=== PATIENT | male | born 1955 | race Caucasian/White ===

== ENCOUNTER 2016-03-08 12:46 | Outpatient (CLI) | payer MEDICARE, OTHER ==
[2016-03-08 14:23] LABS: #Basophils 0.1 thou/uL (0.0-0.2); #Eosinphils 0.2 thou/uL (0.0-0.7); #Lymphocytes 2.6 thou/uL (1.20-3.40); #Monocytes 0.6 thou/uL (0.11-0.59); #Neutrophils 3.5 thou/uL (1.40-6.50); %Basophils 0.8 % (0.0-1.0); %Eosinophils 2.6 % (0.0-10.0); %Lymphocytes 37.9 % (21.0-51.0); %Monocytes 8.1 % (0.0-10.0); Hematocrit 40.2 % (42.0-52.0); Mean Platelet Volume 9.7 fL (7.4-10.4); Red Blood Cell (RBC) Count 4.33 mill/uL (4.70-6.10); White Blood Cell (WBC) Count 6.9 thou/uL (4.8-10.8)
[2016-03-08 14:42] LABS: ALT (SGPT) 23 U/L (0-55); AST (SGOT) 22 U/L (5-34); Alkaline Phosphatase 95 U/L (40-150); Anion Gap 16 mmol/L (10-20); BUN (Urea Nitrogen) 21 mg/dL (8.4-25.7); Bilirubin, Direct 0.2 mg/dL (0.1-0.3); Bilirubin, Total 0.5 mg/dL (0.2-1.2); Calc. Creatinine Clearance 0 mL/min (70-130); Calcium 9.5 mg/dL (7.8-10.44); Carbon Dioxide 23 mmol/L (23-31); Chloride 104 mmol/L (98-107); Estimated GFR-MDRD 48; LDL Cholesterol, Calculated 70 mg/dL; Protein, Total 6.4 g/dL (5.8-8.1)
[2016-03-08 15:35] LABS: Hemoglobin A1c 6.5 % (4.0-6.0)
== END 2016-03-08 12:47 ==
LOC: NAVSJIPCSP 12:46
PROVIDERS: ATTEND Family Medicine
DX: F13.20 Sedative, hypnotic or anxiolytic dependence, uncomplicated (principal)
CPT/HCPCS: 36415; 80048; 80061; 80076; 83036; 84443; 85025

== ENCOUNTER 2016-07-11 09:41 | Outpatient (CLI) | payer MEDICARE, OTHER ==
[2016-07-11 12:42] LABS: #Basophils 0.1 thou/uL (0.0-0.2); #Eosinphils 0.3 thou/uL (0.0-0.7); #Lymphocytes 2.6 thou/uL (1.20-3.40); #Monocytes 0.5 thou/uL (0.11-0.59); #Neutrophils 4.1 thou/uL (1.40-6.50); %Basophils 0.9 % (0.0-1.0); %Eosinophils 3.5 % (0.0-10.0); %Lymphocytes 34.7 % (21.0-51.0); %Monocytes 6.5 % (0.0-10.0); %Neutrophils 54.4 % (42.0-75.0); Hemoglobin 13.5 g/dL (14.0-18.0); Mean Corpuscular HGB CONC 33.1 g/dL (32.0-36.0); Mean Corpuscular Hemoglobin 30.1 pg (27.0-31.0); Mean Corpuscular Volume 91.1 fl (80.0-94.0); Platelet Count 242 thou/uL (130-400); RBC Distribution Width 12.9 % (11.5-14.5); Red Blood Cell (RBC) Count 4.47 mill/uL (4.70-6.10); White Blood Cell (WBC) Count 7.6 thou/uL (4.8-10.8)
[2016-07-11 13:03] LABS: ALT (SGPT) 22 U/L (8-55); AST (SGOT) 22 U/L (5-34); Albumin 4.3 g/dL (3.4-4.8); Alkaline Phosphatase 78 U/L (40-150); Anion Gap 18 mmol/L (10-20); BUN (Urea Nitrogen) 21 mg/dL (8.4-25.7); Bilirubin, Direct 0.2 mg/dL (0.1-0.3); Bilirubin, Total 0.5 mg/dL (0.2-1.2); Calc. Creatinine Clearance 0 mL/min (70-130); Calcium 9.8 mg/dL (7.8-10.44); Carbon Dioxide 23 mmol/L (23-31); Cardiac Risk 3.8 (Less than 4.5); Chloride 101 mmol/L (98-107); Cholesterol 172 mg/dL (< 200 Desired); Estimated GFR-MDRD 46; Glucose 143 mg/dL (80-115); HDL Cholesterol 45 mg/dL (>60 Neg Risk); LDL Cholesterol, Calculated 73 mg/dL; Potassium 4.3 mmol/L (3.5-5.1); Protein, Total 6.9 g/dL (5.8-8.1); Sodium 138 mmol/L (136-145); Triglycerides 270 mg/dL (Less than 150)
[2016-07-11 13:10] LABS: PSA-Asymptomatic (SCREENING) 0.1 ng/mL (0-4.0); Thyroid Stimulating Hormone 3.6344 uIU/mL (0.35-4.94)
[2016-07-11 17:58] LABS: Albumin (w/Testosterone Panel) 4.3 g/dL
[2016-07-11 18:22] LABS: Sex Hormone Binding Globulin 59.9 nmol/L (11-78); Testosterone, Free 74.9 pg/mL (47-244); Testosterone, Total 532.1 ng/dL (221-716)
== END 2016-07-11 09:42 | disposition home or self-care (01) ==
LOC: NAVSJIPCSP 09:41
PROVIDERS: ATTEND Family Medicine
DX: Z12.5 Encounter for screening for malignant neoplasm of prostate (principal); E78.2 Mixed hyperlipidemia; N28.9 Disorder of kidney and ureter, unspecified; I10 Essential (primary) hypertension; R53.83 Other fatigue; Z79.899 Other long term (current) drug therapy
CPT/HCPCS: 36415; 80048; 80061; 80076; 83036; 84270; 84403; 84443; 85025; G0103

== ENCOUNTER 2020-03-29 04:54 | Emergency (ER) | payer MEDICARE, OTHER ==
[2020-03-29 05:39] LABS: #Eosinphils 0.1 thou/uL (0.0-0.7); #Lymphocytes 0.5 thou/uL (1.20-3.40); #Monocytes 0.3 thou/uL (0.11-0.59); #Neutrophils 3.6 thou/uL (1.40-6.50); %Basophils 0.2 % (0.0-1.0); %Eosinophils 1.7 % (0.0-10.0); %Lymphocytes 11.9 % (21.0-51.0); %Monocytes 5.7 % (0.0-10.0); %Neutrophils 80.6 % (42.0-75.0); Hemoglobin 9.4 g/dL (14.0-18.0); Mean Corpuscular HGB CONC 32.4 g/dL (32.0-36.0); Mean Corpuscular Hemoglobin 30.9 pg (27.0-31.0); Mean Corpuscular Volume 95.4 fL (78.0-98.0); Mean Platelet Volume 7.3 fL (7.4-10.4); Platelet Count 229 thou/uL (130-400); RBC Distribution Width 15.5 % (11.5-14.5); Red Blood Cell (RBC) Count 3.05 mill/uL (4.70-6.10); White Blood Cell (WBC) Count 4.5 thou/uL (4.8-10.8)
[2020-03-29] MEDS ORDERED: Cefepime 2 GM VIAL ONE (05:44)
[2020-03-29] MEDS ORDERED: Sodium Chloride 0.9% 100 ML ONE (05:46)
[2020-03-29 05:49] LABS: Anion Gap 18 mmol/L (10-20); BUN (Urea Nitrogen) 14 mg/dL (8.4-25.7); Bilirubin, Total 0.8 mg/dL (0.2-1.2); Calc. Creatinine Clearance 0 mL/min (70-130); Carbon Dioxide 21 mmol/L (23-31); Chloride 101 mmol/L (98-107); Glucose 116 mg/dL (80-115); Potassium 3.5 mmol/L (3.5-5.1); Protein, Total 5.8 g/dL (5.8-8.1); Sodium 134 mmol/L (136-145)
[2020-03-29 05:50] LABS: ALT (SGPT) 17 U/L (8-55); AST (SGOT) 47 U/L (5-34); Albumin 2.9 g/dL (3.4-4.8); Alkaline Phosphatase 58 U/L (40-110); CK (CPK) 19 U/L (30-200); Globulin 2.9 g/dL (2.4-3.5)
[2020-03-29 06:02] LABS: CKMB 0.6 ng/mL (0-6.6)
[2020-03-29 06:09] LABS: SARS-CoV-2 NAA Rapid Test DETECTED (NotDetected)
[2020-03-29 06:26] LABS: Bilirubin Negative (Negative); Blood, Urine Negative (Negative); Clarity Clear (Clear); Glucose, Urine (Dipstick) Negative (Negative); Ketone, Urine Negative (Negative); Leukocyte Negative (Negative); Nitrite Negative (Negative); Protein, Urine (Dipstick) Negative (Neg-Trace); Specific Gravity, Urine 1.015 (1.005-1.030)
[2020-03-29] MEDS ORDERED: Sodium Chloride 0.9% 250 ML 500 ML ONE (07:06)
[2020-03-29] MEDS ORDERED: Sodium Chloride 0.9% 500 ML ONE (08:46)
[2020-03-29] MEDS ORDERED: Iopamidol 370 76% 100 ML VIAL ONE (09:00)
--- NOTE | 2020-03-29 09:00 | RAD ---
PORTABLE CHEST: 03/29/20 PROVIDED CLINICAL HISTORY: Congestive heart failure. COMPARISON: 03/18/20 FINDINGS: The cardiac silhouette appears enlarged, which may be at least partially on the basis of the portable technique. Median sternotomy changes are seen. Prominence of the pulmonary vasculature and pulmonary interstitium are noted with patchy bilateral air space disease. No pleural fluid or pneumothorax bárbara arent. IMPRESSION: Findings suggesting congestive failure with alveolar edema. Followup is recommended. POS: DREW
[2020-03-29] MEDS ORDERED: Aspirin 325 MG TAB ONE (09:12)
--- NOTE | 2020-03-29 09:40 | CT ---
CT PULMONARY ANGIOGRAM WITH IV CONTRAST AND 3D MIP RECONSTRUCTIONS: 03/29/20 PROVIDED CLINICAL HISTORY: Dyspnea. FINDINGS: Evaluation is limited by patient respiratory motion. There is no evidence for central or proximal segmental pulmonary embolus. There is non-circumscribed, [id number] fluid density within the anterior mediastinum with overlying median sternotomy yahaira nge, presumably recent. There is small volume pericardial fluid. Vascular calcification, including co ronary calcium, CABG change. There are extensive bilateral ground glass opacities with associated interstitial thickening, predomi nating peripherally. No vascular congestion is evident. The airway appears patent and of normal calib er proximally. There is no pleural fluid or pneumothorax apparent. There is no evidence for thoracic lymph node enlargement. The visualized portions of the upper abdomen appear unremarkable. The osseous structures demonstrate no concerning lytic or blastic lesions. IMPRESSION: 1. No evidence for central or proximal segmental pulmonary embolus with limitations in evaluation of the distal pulmonary arterial system due to patient respiratory motion. 2. Pulmonary parenchymal findings, typical but not specific for COVID pneumonia. 3. Presumably recent coronary artery bypass grafting change with non-circumscribed fluid density seen within the anterior mediastinum, likely due to seroma. 4. Small pericardial effusion. POS: DREW
== END 2020-03-29 09:44 | disposition short-term general hospital (02) ==
LOC: NAV ERS 04:54
DX: U07.1 COVID-19 (principal); J12.82 Pneumonia due to coronavirus disease 2019; R77.8 Other specified abnormalities of plasma proteins; K21.9 Gastro-esophageal reflux disease without esophagitis; E78.5 Hyperlipidemia, unspecified; I10 Essential (primary) hypertension
CPT/HCPCS: 0240U; 51701; 71045; 71275; 80053; 81003; 82550; 82553; 83605; 83880; 84484; 85025; 85379; 87040; 87086; 93005; 96365; 96366; 96367; J0692; J1956; J3370; J3490; J7030; J7050; Q9967